=== PATIENT | male | born 1955 | race Caucasian/White ===

== ENCOUNTER 2020-12-15 16:16 | Inpatient (IN) | payer OTHER ==
[~2020-12-15] VITALS: Ht 177.8 cm; Wt 99.8 kg
[2020-12-15 16:47] LABS: RED BLOOD COUNT 4.76 M/UL (4.20-5.50); WHITE BLOOD COUNT 4.4 K/UL (4.5-11.0)
[2020-12-15 17:15] LABS: BUN/CREATININE RATIO 21 (0-10)
[2020-12-16 05:12] LABS: HEMOGLOBIN 13.9 gm/dl (14.0-17.5); RED BLOOD COUNT 4.5 M/UL (4.20-5.50)
[2020-12-16 05:13] LABS: WHITE BLOOD COUNT 2.4 K/UL (4.5-11.0)
[2020-12-16 05:31] LABS: BUN/CREATININE RATIO 29 (0-10)
[2020-12-16] MEDS ORDERED: AMLODIPINE BESY10 MG PO (15:08)
[2020-12-16] MEDS ORDERED: LISINOPRIL40 MG PO (15:09)
[2020-12-16] MEDS ORDERED: ISOSORBIDE MONO30 MG PO (15:09)
[2020-12-16] MEDS ORDERED: ATORVASTATIN CA40 MG PO (15:09)
[2020-12-16] MEDS ORDERED: COREG 12.5MG12.5 MG PO (15:09)
[2020-12-16] MEDS ORDERED: HYDROCHLOROTH12.5 MG PO (15:09)
[2020-12-17 04:03] LABS: BUN/CREATININE RATIO 35 (0-10)
--- NOTE | 2020-12-17 13:23 | NUR ---
PATIENT REFUSED BIPAP AT 1257, EDUCATED PATIENT ON SEVERITY OF PNEUMONIA AND RISK OF INTUBATION DUE TO LOW OXYGEN LEVELS, PATIENT STATES HE UNDERSTANDS BUT STILL CANNOT WEAR AND REFUSES BIPAP. CONTACTED DR DUTTON AND LET HER KNOW THIS.
--- NOTE | 2020-12-17 14:12 | NUR ---
PATIENTS OXYGEN SAT DROPPED TO 64, PATIENT EDUCATED AGAIN ON WORSENING OF CONDITION, DR DUTTON TO PUT IN ORDER FOR AIRVO.
[2020-12-18 04:05] LABS: BUN/CREATININE RATIO 24 (0-10)
--- NOTE | 2020-12-20 19:05 | NUR ---
1600 Respiratory Therapist here to see patient. Stated patient is having trouble keeping sats up & they need to switch him over to bipap. Dr Lemons called for order. [address] Lemons called for order for med for anxiety. Ativan 1mg IVP ordered. 1620 Dr Lemons called to come to patient's room. Ordered patient to be intubated, & notified ER Physician. 1640 ER Physician here, ordered Amidate 20mg IVP & Rocuronium 70mg IVP. 1640 Amidate 20mg IVP given as ordered. 1644 Rocuronium 70mg IVP given as ordered. 1645 Patient successfully intubated. 1655 Patient transported to ICU, bagged per Respiratory Therapist, monitored per tele for pulse ox. Dr Lemons accompanied patient to ICU. 1700 Called ICU to give report, asked Robyn to call for report when convenient for her. 1800 Kelley Ascencio RN called for report. Report given.
--- NOTE | 2020-12-20 19:34 | NUR ---
1700 Daughter, Priscila Duron, called to inform patient had been transferred to ICU.
--- NOTE | 2020-12-20 19:42 | NUR ---
PATIENT ARRIVED TO THE UNIT AT 1705, PATIENT STARTED TO CODE AT 1728. PLEASE SEE CODE SHEET FOR FURTHER DETAILS AND VITALS.
--- NOTE | 2020-12-20 19:44 | NUR ---
1605 Respiratory here with patient, stated his 02 Sat was not staying up & he would need to be on Bipap. Dr Echeverria called, stated that was fine. 1610 Dr Lemons called for medication for anxiety. Ativan 1mg IVP ordered. 1630 Dr Lemons called to come to patient's room. Dr Lemons ordered ABG stat. Also notified ER doctor that patient needed to be intubated. 1635 ER doctor here, ordered Atodate & Rocuronium. 1645 Patient successfuly intubated & transfered to ICU, monitored by tele for pulse ox. +
--- NOTE | 2020-12-20 19:57 | NUR ---
194- BENNIE CONTACTED, REFER TO BENNIE DOCUMENTATION
--- NOTE | 2020-12-20 19:57 | NUR ---
1830- PATIENT CURRENTLY BEING CODED, REFER TO CODE SHEET FOR DOCUMENTATION.
== END 2020-12-20 19:00 | disposition expired | DRG 208 ==
LOC: ER1 16:16 → CDU 17:56 → M/S 17:56 → CCU 12-20 17:10
PROVIDERS: Emergency Medicine; Internal Medicine; Physician Assistant Medical; ADMIT Internal Medicine
PROC: 8E0ZXY6 Isolation (ICD-10-PCS; 2020-12-15)
PROC: XW033E5 Introduction of Remdesivir Anti-infective into Peripheral Vein, Percutaneous Approach, New Technology Group 5 (ICD-10-PCS; 2020-12-15)
PROC: XW13325 Transfusion of Convalescent Plasma (Nonautologous) into Peripheral Vein, Percutaneous Approach, New Technology Group 5 (ICD-10-PCS; 2020-12-16)
PROC: 5A1935Z Respiratory Ventilation, Less than 24 Consecutive Hours (ICD-10-PCS; principal; 2020-12-20)
PROC: 0BH17EZ Insertion of Endotracheal Airway into Trachea, Via Natural or Artificial Opening (ICD-10-PCS; 2020-12-20)
PROC: 06HY33Z Insertion of Infusion Device into Lower Vein, Percutaneous Approach (ICD-10-PCS; 2020-12-20)
DX: U07.1 COVID-19 (principal); J12.82 Pneumonia due to coronavirus disease 2019; J96.21 Acute and chronic respiratory failure with hypoxia; J15.6 Pneumonia due to other Gram-negative bacteria; E87.1 Hypo-osmolality and hyponatremia; N17.9 Acute kidney failure, unspecified; E87.2 Acidosis; S27.0XXA Traumatic pneumothorax, initial encounter; R73.9 Hyperglycemia, unspecified; I10 Essential (primary) hypertension; E86.1 Hypovolemia; T38.0X5A Adverse effect of glucocorticoids and synthetic analogues, initial encounter; E87.6 Hypokalemia; Z79.899 Other long term (current) drug therapy
CPT/HCPCS: 31500; 36415; 36600; 71045; 71275; 72170; 80048; 80053; 82550; 82553; 82803; 82962; 83036; 83605; 83735; 83880; 84100; 84132; 84484; 85025; 85027; 85379; 85610; 86900; 86901; 86927; 87040; 92950; 93005; 94002; 94640; 94760; 96365; 96368; 96375; 99285; J0171; J0456; J0461; J0610; J0696; J1100; J1650; J1940; J2060; J2370; J2704; J7030; J7070; Q9967